=== PATIENT | female | born 1995 | race Caucasian/White ===

== ENCOUNTER 2021-08-12 04:25 | Day surgery (SDC) | payer OTHER ==
[2021-08-10 13:25] VITALS: BMI 23.9
[2021-08-12] MEDS ORDERED: PROMETHAZINE HCL 25 MG/1 ML VIAL IVPB PRN (14:04)
[2021-08-12] MEDS ORDERED: ONDANSETRON 4 MG/2 ML VIAL IVPUSH PRN (14:04)
[2021-08-12] MEDS ORDERED: LACTATED RINGERS SOLUTION 1,000 ML IV SCH ×2 (14:15→16:15)
[2021-08-12] MEDS ORDERED: oxyCODONE HCL 5 MG TABLET PO PRN (16:06)
[2021-08-12] MEDS ORDERED: ACETAMINOPHEN 325 MG TABLET (FP) PO PRN (16:06)
[2021-08-12] MEDS ORDERED: IBUPROFEN 400 MG TABLET (FP) PO PRN (16:06)
[2021-08-12] MEDS ORDERED: oxyCODONE HCL 5 MG TABLET ONE (18:31)
[2021-08-12 19:42] VITALS: BP 109/61; PULSE 86; TEMP 98
== END 2021-08-12 19:41 | disposition home or self-care (01) ==
LOC: EDBD → JASU-SURG 04:25
PROVIDERS: ATTEND Obstetrics & Gynecology
PROC: 0UVC7ZZ Restriction of Cervix, Via Natural or Artificial Opening (ICD-10-PCS; principal; 2021-08-12 14:00)
DX: O34.32 Maternal care for cervical incompetence, second trimester (principal); Z3A.16 16 weeks gestation of pregnancy
CPT/HCPCS: 86850; 86900; 86901; 94760

== ENCOUNTER 2022-01-10 06:15 | Inpatient (IN) | payer OTHER ==
[2022-01-10] MEDS ORDERED: CITRIC ACID/SODIUM CITRATE 30 ML UNIT-DOSE CUP PO ONE (06:30)
[2022-01-10] MEDS ORDERED: ELECTROLYTE-148 SOLN 500 ML IV SCH (06:30)
[2022-01-10 06:49] VITALS: BMI 26.5
[2022-01-10] MEDS ORDERED: IBUPROFEN 600 MG TABLET (FP) PO PRN (07:56)
[2022-01-10] MEDS ORDERED: ONDANSETRON 4 MG/2 ML VIAL IVPUSH PRN (07:56)
[2022-01-10] MEDS ORDERED: ACETAMINOPHEN 325 MG TABLET (FP) PO PRN ×2 (07:56→10:00)
[2022-01-10] MEDS ORDERED: morphine SULFATE/PF 1 MG/2 ML (2cc Syringe - QUVA) EP ONE (07:56)
[2022-01-10] MEDS ORDERED: ceFAZolin SODIUM 1 GM VIAL ONE (08:07)
[2022-01-10] MEDS ORDERED: morphine SULFATE/PF 1 MG/2 ML (2cc Syringe - QUVA) ONE (08:07)
[2022-01-10] MEDS ORDERED: PHENYLEPHRINE HCL 10 MG/1 ML SINGLE DOSE VIAL ONE (08:07)
[2022-01-10] MEDS ORDERED: ePHEDrine SULFATE 50 MG/1 ML AMPULE ONE (08:07)
[2022-01-10] MEDS ORDERED: SODIUM CHLORIDE 0.9% P/F 10 ML VIAL IJ ONE ×2 (08:10→08:12)
[2022-01-10] MEDS ORDERED: OXYTOCIN 10 UNITS/ML VIAL ONE ×2 (08:12→08:54)
[2022-01-10] MEDS: ELECTROLYTE-148 SOLN 500 ML IV SCH (08:13)
[2022-01-10] MEDS ORDERED: KETOROLAC TROMETHAMINE 30 MG/1 ML VIAL ONE (08:54)
[2022-01-10] MEDS ORDERED: ONDANSETRON 4 MG/2 ML VIAL ONE (08:54)
[2022-01-10] MEDS ORDERED: OXYTOCIN 20 UNITS in 0.9% NS 20 UNIT/1,000 ML INFUS.BAG IV ONE (09:48)
[2022-01-10] MEDS: OXYTOCIN 20 UNITS in 0.9% NS 20 UNIT/1,000 ML INFUS.BAG IV SCH ×2 (10:00→15:54)
[2022-01-10] MEDS ORDERED: SENNOSIDES/DOCUSATE COMBO (SENNA PLUS) TABLET (UD) PO PRN (10:00)
[2022-01-10] MEDS ORDERED: METHYLERGONOVINE MALEATE 0.2 MG/1 ML AMP IM PRN (10:00)
[2022-01-10] MEDS: PRENATAL VITAMINS W/ FOLIC ACID TABLET (FP) PO SCH (11:23)
[2022-01-10 11:56] LABS: HIV INTERPRETATION NEGATIVE (NEGATIVE)
[2022-01-10] MEDS: IBUPROFEN 800 MG/8 ML IJ IVPB PRN (12:00)
[2022-01-10] MEDS ORDERED: FLU VACC QS2021-22(6MOS UP)/PF 60 MCG/0.5 ML SYRINGE IM ONE (12:29)
[2022-01-10] MEDS ORDERED: oxyCODONE HCL 5 MG TABLET PO PRN ×2 (22:00)
[2022-01-11 06:14] LABS: BASO % 0.2 % (0-2.0); EOS % 0.5 % (0-4.5); HEMOGLOBIN 9.3 GM/dL (10.7-15.3); LYMPH % 18.8 % (8-40); MCH 29.2 pg (25.7-33.7); MCHC 33.3 g/dl (32.0-36.0); MEAN CELL VOLUME 87.6 fl (80-96); MEAN PLT VOLUME 7.8 fl (7.5-11.1); MONO % 6.9 % (3.8-10.2); NEUT % 73.6 % (42.8-82.8); PLATELET COUNT 245 10^3/uL (134-434); RDW 14.7 % (11.6-15.6); WHITE BLOOD COUNT 11.4 K/mm3 (4.0-10.0)
[2022-01-11] MEDS: IBUPROFEN 800 MG/8 ML IJ IVPB PRN (06:19)
[2022-01-11] MEDS: PRENATAL VITAMINS W/ FOLIC ACID TABLET (FP) PO SCH (09:18)
[2022-01-11] MEDS ORDERED: DIPHTH,PERTUSS(ACELL),TET 0.5 ML DISP.SYRIN IM ONE (10:00)
[2022-01-11] MEDS ORDERED: FLU VACC QS2021-22(6MOS UP)/PF 60 MCG/0.5 ML SYRINGE IM ONE (10:00)
[2022-01-11] MEDS ORDERED: BISACODYL 10 MG SUPP.RECT RC PRN (10:00)
[2022-01-11] MEDS: IBUPROFEN 600 MG TABLET (FP) PO PRN (15:11)
[2022-01-11] MEDS: SIMETHICONE 80 MG TAB.CHEW (FP) PO PRN (15:11)
[2022-01-11] MEDS: ELECTROLYTE-148 SOLN 500 ML IV SCH (19:48)
[2022-01-11] MEDS: OXYTOCIN 20 UNITS in 0.9% NS 20 UNIT/1,000 ML INFUS.BAG IV SCH (19:48)
[2022-01-12] MEDS: SIMETHICONE 80 MG TAB.CHEW (FP) PO PRN ×2 (01:17→04:53)
[2022-01-12] MEDS: IBUPROFEN 600 MG TABLET (FP) PO PRN (07:25)
[2022-01-12 09:35] VITALS: BP 108/68; PULSE 89; TEMP 98
[2022-01-12] MEDS: PRENATAL VITAMINS W/ FOLIC ACID TABLET (FP) PO SCH (09:36)
== END 2022-01-12 10:25 | disposition home or self-care (01) | DRG 540 ==
LOC: JLDR 06:15 → J3W 11:49
PROVIDERS: ADMIT Obstetrics & Gynecology; ATTEND Obstetrics & Gynecology
PROC: 10D00Z1 Extraction of Products of Conception, Low, Open Approach (ICD-10-PCS; principal; 2022-01-10)
PROC: 0UL70ZZ Occlusion of Bilateral Fallopian Tubes, Open Approach (ICD-10-PCS; 2022-01-10)
DX: O34.219 Maternal care for unspecified type scar from previous cesarean delivery (principal); Z3A.37 37 weeks gestation of pregnancy; Z37.0 Single live birth
CPT/HCPCS: 36415; 85025; 87389; 88302-TC; 88307-TC; 90686; 90715; G0008